=== PATIENT | female | born 1995 | race Caucasian/White ===

== ENCOUNTER → 2024-12-26 | Outpatient (BNVA) | payer MEDICAID, SELFPAY | END | disposition home or self-care (01) | PROVIDERS: PCP Physician Assistant Medical; Referring Provider Physician Assistant Medical; Visit Provider Urology | DX: R31.29 Other microscopic hematuria (principal); R30.0 Dysuria; G89.4 Chronic pain syndrome; R10.2 Pelvic and perineal pain; R73.03 Prediabetes; E66.9 Obesity, unspecified; Z68.34 Body mass index [BMI] 34.0-34.9, adult | CPT/HCPCS: 81003; 99202; G0463 ==